=== PATIENT | female | born 1965 | race Caucasian/White ===

== ENCOUNTER 2021-08-03 06:17 | Day surgery (SDC) | payer MEDICARE ==
--- NOTE | ~2021-08-03 | OP ---
[facility] [address] [place] [address] OPERATIVE REPORT Name: SATURNINO LUCIA Room: [facility]..#: [id number] Admission: Attend Phys: Carl Odonnell Discharge: Date of : 67 Report #: [id number] THIS REPORT FOR: cc: Marilu Preciado Ghaison F. DO Patterson,Carl Moya MD ~ DATE OF SURGERY: 08/03/2021 PREOPERATIVE DIAGNOSIS: Internal and external hemorrhoids. POSTOPERATIVE DIAGNOSIS: Internal and external hemorrhoids. OPERATION: Excision of internal and external hemorrhoids, 2 columns. SURGEON: Dr. Carl Odonnell. ANESTHESIA: General. ESTIMATED BLOOD LOSS: Minimal. SPECIMEN: Hemorrhoids. DESCRIPTION OF PROCEDURE: After informed consent was obtained, the patient was brought to the operating room and placed supine. SCDs were placed and working, preoperative antibiotics were administered, general anesthesia was induced. The patient was then placed in the dorsal lithotomy position. The area was prepped and draped in the usual sterile fashion. Digital rectal exam was performed. This did not demonstrate any masses. She did have external and internal hemorrhoids. The 2 columns were grasped. These were in the right posterior and right anterior regions. The base of the hemorrhoids were ligated using the LigaSure device. There was excellent hemostasis. The area was then packed with Gelfoam. 30 mL of 0.5% Marcaine was used to provide a nerve block. Sterile dressings were applied. COMPLICATIONS: None. DISPOSITION: The patient was taken to recovery in satisfactory condition. By: [id number] Odonnell MD /nt
[2021-08-03] MEDS ORDERED: ZETIA10 MG PO (06:34)
[2021-08-03] MEDS ORDERED: CRESTOR40 MG PO (06:35)
[2021-08-03] MEDS ORDERED: DULOXETINE HCL60 MG PO (06:35)
[2021-08-03] MEDS ORDERED: PREGABALIN300 MG PO (06:36)
[2021-08-03] MEDS ORDERED: PROAIR HFA8.5 GM INH (06:37)
[2021-08-03] MEDS ORDERED: FOSAMAX 70 MG T70 MG PO (06:37)
[2021-08-03] MEDS ORDERED: VITAMIN D-40010 MCG (06:38)
[2021-08-03] MEDS ORDERED: HYDROCODON-ACE1 EAC7 PO (08:44)
[2021-08-03] MEDS ORDERED: NORCO5 PO (13:27)
--- NOTE | 2021-08-07 12:07 | PATH ---
[address] [address] PATHOLOGY RPT PROCEDURE Name: SATURNINO LUCIA Room: [facility]#: [id number] Admission: 08/03/21 Date of : 67 Discharge: 08/03/21 Report #: [id number] Path Case #: [id number] [facility] Accession Number: [id number] . 01 Material submitted: . hemorrhoids - HEMORRHOID . 01 Clinical history: . HEMORRHOIDECTOMY HEMORRHOIDS . 02 Diagnosis: Hemorrhoid: - Benign skin and colonic mucosa with prominent hemorrhoids. (LINDA:pit; 08/06/2021) [facility] 08/06/2021 1155 Local . 02 Electronically signed: . Collin Thornton MD, Pathologist NPI- [id number] . 01 Gross description: . Fixative: Formalin Labeled: Hemorrhoids Specimen received: 2 intact hemorrhoids Dimensions: 1.9 x 1.1 x 0.9 cm and 3.4 x 1.1 x 1.1 cm Cut surface: Red purple honeycombed cut surface [employer] Operator tissue in cassette A1. ([facility]; 08/05/2021) GZA/GZA 08/05/2021 1439 Local . 02 Pathologist provided ICD-10: K64.9 . 02 CPT . 511133 Specimen Comment: A courtesy copy of this report has been sent to [phone], [phone] Specimen Comment: [phone] Specimen Comment: Report sent to / DR KOO Specimen Comment: A duplicate report has been generated due to demographic updates. Performed at: [address] [id number] MD Max Bowen MD Phone: [phone] Performed at: [address] [id number] PATHOLOGY RPT PROCEDURE Name: SATURNINO LUCIA Room: [facility]#: [id number] Admission: 08/03/21 Date of : 67 Discharge: 08/03/21 Report #: [id number] Path Case #: [id number] [address] [place], [place] [id number] MD Collin Thornton MD Phone: [phone]
== END 2021-08-03 09:40 | disposition home or self-care (01) ==
LOC: M.SUR 06:17
PROVIDERS: ATTEND Surgery
DX: K64.8 Other hemorrhoids (principal); K64.4 Residual hemorrhoidal skin tags; G35 Multiple sclerosis; Z20.822 Contact with and (suspected) exposure to COVID-19